=== PATIENT | female | born 1940 | race Caucasian/White ===

== ENCOUNTER 2018-11-29 13:55 | Inpatient (IN) ==
[2018-11-29] MEDS ORDERED: D50W SYRINGE IV PRN (16:15)
--- NOTE | 2018-11-29 17:32 | Diag Imaging Result Doc PS360 ---
EXAM: FOOT 2 VIEWS LEFT 11/29/2018 HISTORY: wound pain TECHNIQUE: Left foot two views COMMENT: There is erosion of the distal fifth metatarsal as there was on 11/30/2017. No evidence of acute fracture or dislocation is present. IMPRESSION: Stable foot. Electronically signed by Gil Mayer 11/29/2018 5:29 PM
--- NOTE | 2018-11-29 17:33 | Diag Imaging Result Doc PS360 ---
EXAM: CHEST-2 VIEWS 11/29/2018 HISTORY: congestion TECHNIQUE: PA and lateral chest COMMENT: The appearance of the chest has not changed significantly since 01/31/2018. IMPRESSION: Stable chest. Electronically signed by Gil Mayer 11/29/2018 5:30 PM
--- NOTE | 2018-11-29 18:07 | HISTORY AND PHYSICAL ---
HISTORY OF PRESENT ILLNESS: Ms. Addison who is a 78-year-old white female was admitted because of persistence of a sore on the lateral part of the left foot and some cellulitis around. She has diabetic neuropathy and possibly has a bunion and on top of that, she has a large sore which has not been healing and has been getting infected off and on. She has had diabetes for at least 15 to 20 years and has developed neuropathy now. She does not have much feeling in both feet and she has some peripheral arterial disease. PAST SURGICAL HISTORY: Reveals history of hysterectomy, cholecystectomy, and left ovary removal. SOCIAL HISTORY: She is a nonsmoker. Does not drink. ALLERGIES: She is allergic to vitamin E and aspirin. REVIEW OF SYSTEMS: Other than discomfort in the left foot is noncontributory. PHYSICAL EXAMINATION: VITAL SIGNS: Reveal temperature 98.2 degrees Fahrenheit, pulse 81 per minute, respiratory rate 20 per minute, blood pressure was 147/90. Pulse is irregularly irregular. HEENT: Head normocephalic. Pupils PERRLA. Fundus examination normal. NECK: Supple. JVP normal. ENT examination unremarkable. There is no evidence of lymphadenopathy, thyroid enlargement, pedal edema, calf tenderness, anemia, cyanosis or clubbing. Pedal pulses feeble. There is a sore on the lateral border of the left foot where there is some cellulitis and somewhat healthy granulation tissue inside. BREASTS: Exam normal. CHEST: Normal inspection. LUNGS: Clear on auscultation. CARDIOVASCULAR: PMI in the normal position. Heart sounds normal. No murmur, gallop, or rub noted. She is in atrial fibrillation. ABDOMEN: Nondistended. There are scars from previous surgery. No guarding, rigidity, free fluid, masses, or organomegaly. Bowel sounds normal. RECTAL: Deferred. GAS LEAK INSPECTOR: Higher functions normal. Cranial nerves normal. Motor and sensory system examination unremarkable. Deep tendon reflexes normal. Plantars downgoing. SKULL AND SPINE: Examination normal for age. No cerebellar signs or signs of meningeal irritation. LOCOMOTOR EXAM AND SKIN EXAM: Unremarkable except for the sore which is sitting on a bunion and it is about the size of a dollar. There is somewhat healthy granulation tissue; most of it is healthy granulation. There is some cellulitis around. IMPRESSION: Nonhealing diabetic sore with cellulitis on the left foot. MEDICATIONS: Her medications include atenolol, Cymbalta, Estrace, Synthroid, Cozaar, and meloxicam. We have her on Humalog sliding scale. cc: Wilbur Dorman MD MTDD
--- NOTE | 2018-11-29 18:29 | EKG Report ---
Test Performed on : 11/29/2018 5:27:06 PM Test Reason : CELLULITIS Blood Pressure : / mmHG Vent. Rate : 087 BPM Atrial Rate : 110 BPM P-R Int : 000 ms QRS Dur : 084 ms QT Int : 386 ms P-R-T Axes : 000 021 038 degrees QTc Int : 464 ms Atrial fibrillation. Nonspecific ST and T wave abnormality Abnormal ECG When compared with ECG of 11-JUL-2014 09:49, Atrial fibrillation. has replaced Sinus rhythm. Nonspecific T wave abnormality, worse in Inferior leads Nonspecific T wave abnormality, worse in Lateral leads Confirmed by Shaquille RYE, MNolan Kamara ([id number]) on 11/30/2018 6:25:24 AM
[2018-11-29] MEDS: GLUCOPHAGE PO SCH (18:58)
[2018-11-29 19:07] LABS: BASO# 0.06 X1000 (0.0-0.2); EOS# 0.06 X1000 (0.0-0.7); HEMATOCRIT 37.1 % (37.0-47.0); HEMOGLOBIN 12.6 g/dL (12.0-16.0); LYMPH# 1.97 X1000 (1.2-3.4); LYMPH% 31.3 % (20.5-51.1); MCH 29.6 PG (27-31); MCV 87.1 FL (81-99); MONO# 0.39 X1000 (0.11-0.59); MONO% 6.2 % (1.7-9.3); MPV 9.8 FL (7.4-10.4); NEUT# 3.82 X1000 (1.4-6.5); NEUT% 60.5 % (42.2-75.2); PLT 200 X1000 (130-400); RBC 4.26 XMIL (4.2-5.4); RDW 14.1 % (11.5-14.5)
[2018-11-29 19:30] LABS: ALB/GLOB RATIO 1.3; ALBUMIN 4.3 g/dL (3.5-5.0); POTASSIUM 3.8 mmol/L (3.5-5.1); TOTAL BILIRUBIN 0.47 mg/dL (0.20-1.00); TOTAL PROTEIN 7.7 g/dL (6.3-8.3)
[2018-11-29] MEDS: ZOSYN 3.375 GM in NS 50 ML IV SCH (20:30)
[2018-11-29] MEDS: ULTRAM PO SCH (21:23)
[2018-11-29] MEDS: TRILAFON PO SCH (21:24)
[2018-11-29] MEDS: HUMALOG SUBQ SCH (21:25)
[2018-11-30] MEDS: ZOSYN 3.375 GM in NS 50 ML IV SCH ×4 (02:42→21:24)
[2018-11-30 03:46] LABS: URINE SOURCE CLEAN CATCH
[2018-11-30 03:51] LABS: BILIRUBIN URINE NEGATIVE (NEGATIVE); BLOOD URINE NEGATIVE (NEGATIVE); COLOR STRAW; GLUCOSE URINE NEGATIVE (NEGATIVE); KETONE URINE NEGATIVE (NEGATIVE); LEUKOCYTES URINE NEGATIVE (NEGATIVE); NITRITE URINE NEGATIVE (NEGATIVE); PROTEIN URINE NEGATIVE (NEGATIVE); SP GRAVITY URINE 1.009; TURBIDITY URINE CLEAR (CLEAR); UR EPITHELIAL CELLS <10 /HPF (<10); URINE BACTERIA NEGATIVE /HPF; URINE RBC <10 /HPF (<10); URINE WBC <10 /HPF (<10); UROBILINOGEN URINE NORMAL (NORMAL)
[2018-11-30] MEDS: TENORMIN PO SCH ×2 (04:11→09:00)
[2018-11-30] MEDS: SYNTHROID PO SCH (06:58)
[2018-11-30] MEDS: HUMALOG SUBQ SCH ×4 (06:58→21:00)
[2018-11-30] MEDS: ESTRACE PO SCH (08:58)
[2018-11-30] MEDS: MOBIC PO SCH (08:58)
[2018-11-30] MEDS: CYMBALTA PO SCH (08:59)
[2018-11-30] MEDS: COZAAR PO SCH (08:59)
[2018-11-30] MEDS: TRILAFON PO SCH ×2 (09:00→21:30)
[2018-11-30] MEDS: GLUCOPHAGE PO SCH ×2 (09:00→17:11)
[2018-11-30] MEDS: ULTRAM PO SCH ×3 (09:00→21:24)
--- NOTE | 2018-11-30 15:27 | PROGRESS NOTE ---
DATE: 11/30/2018 Ms. Addison was admitted yesterday. Her wound appears clean today and she had arterial flow studies done. The culture studies have been done. The results will come back. In the meantime, she is being treated with IV Zosyn. -1 cc: Wilbur Dorman MD
[2018-11-30] MEDS ORDERED: TYLENOL PO PRN (20:47)
--- NOTE | 2018-11-30 21:20 | VASCULAR LAB ---
DATE: 11/29/2018 PROCEDURE: Lower extremity arterial study at rest. REFERRING PHYSICIAN: Wilbur Dorman MD. INTERPRETING PHYSICIAN: Oumar Cota MD. CUSTOMER RELATIONS ASSISTANT: Damian. INDICATION: The patient has a nonhealing wound on the lateral left foot. She is diabetic and hypertensive. No smoking history. FINDINGS: The brachial pressure is 205, right high thigh pressure 218, right low thigh pressure 235, right calf pressure 250, right dorsalis pedis pressure 219, right posterior tibial 201, right AB index 1.1, right great toe pressure 143, right total brachial index 0.70. The PVRs appear normal. On the right toe, PPGs are pulsatile in each toe. On the left, the high thigh pressure is 224, left low thigh pressure 244, left calf pressure 230, left dorsalis pedis 215, left posterior tibial 214, left AB index 1.05, left great toe pressure 109, left total brachial index 0.53. Again, the PVRs are pulsatile throughout and the PPGs of the toes are pulsatile. INTERPRETATION: Essentially normal resting arterial study. This should provide adequate blood supply to heal a wound of the foot. cc: MD Wilbur Stanford MD
[2018-11-30] MEDS: MIRALAX PO SCH (21:24)
[2018-12-01] MEDS: ZOSYN 3.375 GM in NS 50 ML IV SCH ×4 (03:34→22:09)
[2018-12-01] MEDS: SYNTHROID PO SCH (06:46)
[2018-12-01] MEDS: HUMALOG SUBQ SCH ×4 (06:47→22:07)
[2018-12-01] MEDS: MIRALAX PO SCH (09:17)
[2018-12-01] MEDS: ULTRAM PO SCH ×3 (09:17→22:07)
[2018-12-01] MEDS: ESTRACE PO SCH (09:18)
[2018-12-01] MEDS: GLUCOPHAGE PO SCH ×2 (09:19→16:43)
[2018-12-01] MEDS: CYMBALTA PO SCH (09:19)
[2018-12-01] MEDS: COZAAR PO SCH (09:19)
[2018-12-01] MEDS: TRILAFON PO SCH ×2 (09:20→22:09)
[2018-12-01] MEDS: TENORMIN PO SCH (09:21)
[2018-12-01] MEDS: MOBIC PO SCH (09:21)
--- NOTE | 2018-12-01 09:43 | PROGRESS NOTE ---
DATE: 12/01/2018 SUBJECTIVE: Ms. Addison has diabetic ulcer on the left foot. Cultures are so far negative. She is getting IV antibiotics. She is being seen by Dr. Biggs today for follow-up. She had extremity arterial flow studies performed, which are essentially normal. -0 cc: Wilbur Dorman MD
[2018-12-02] MEDS: ZOSYN 3.375 GM in NS 50 ML IV SCH ×2 (04:13→08:35)
[2018-12-02] MEDS: SYNTHROID PO SCH (06:01)
[2018-12-02] MEDS: HUMALOG SUBQ SCH ×2 (06:44→12:42)
--- NOTE | 2018-12-02 07:54 | ORTHOPAEDICS CONSULTATION ---
DATE: 12/02/2018 HISTORY OF PRESENT ILLNESS: Ms. Addison is a 78-year-old female who has been admitted to the hospital for this nonhealing ulcer on her left foot. She says it has been there for approximately 4 or 5 years. She said it looks the best it has looked now. PAST MEDICAL HISTORY: History of peripheral artery disease, diabetes, diabetic neuropathy. PAST SURGICAL HISTORY: Hysterectomy, cholecystectomy. SOCIAL HISTORY: She denies any alcohol or tobacco use. ALLERGIES: Vitamin E and aspirin. MEDICATIONS: Per the medical record. REVIEW OF SYSTEMS: Positive for ulcer on this left foot chronically. All other systems are essentially negative. PHYSICAL EXAMINATION: General: Elderly-appearing female, lying in bed in no acute distress. Head and Neck: Normocephalic, atraumatic. Respirations: Nonlabored breathing. Cardiovascular: Regular rate. Abdomen: Nondistended. Extremities: On left lower extremity exam, she has an ulcer over the 5th metatarsal base. It does appear to be superficial and there is some good granulation tissue there. I do not see any erythema around the wound. There is no drainage. Her foot is a cavus position. RADIOGRAPHS: Several views of the left foot from the hospital show: I do not see any lytic area in the base of the 5th metatarsal. There is some degeneration of the metatarsal head distally. ASSESSMENT: 1. Left diabetic foot ulcer. 2. Left cavus foot. PLAN: I discussed with Ms. Addison about the foot. There are operative and nonoperative interventions to consider. What we may need to do first is get her custom insert for her shoes to offload the 5th metatarsal but also to try to reposition her cavus foot to a little better position. I believe that is what is causing most of the problem, is her cavus is overloading that 5th metatarsal. If we can off-load it effectively, then we may not have to do any surgical intervention. I went over that with her. What I would like to do is get her to see me in the clinic outpatient. I am okay with her being discharged from an orthopedic standpoint and I will follow her in my clinic. cc: MD Wilbur Roper MD
[2018-12-02] MEDS: ESTRACE PO SCH (08:35)
[2018-12-02] MEDS: TRILAFON PO SCH (08:37)
[2018-12-02] MEDS: ULTRAM PO SCH ×2 (08:37→12:39)
[2018-12-02] MEDS: TENORMIN PO SCH (08:38)
[2018-12-02] MEDS: MOBIC PO SCH (08:38)
[2018-12-02] MEDS: COZAAR PO SCH (08:38)
[2018-12-02] MEDS: GLUCOPHAGE PO SCH (08:38)
[2018-12-02] MEDS: CYMBALTA PO SCH (08:38)
[2018-12-02] MEDS: MIRALAX PO SCH (08:38)
[2018-12-02 11:23] VITALS: BP 157/78
--- NOTE | 2018-12-02 11:48 | PROGRESS NOTE ---
DATE: 12/02/2018 SUBJECTIVE: Ms. Addison is doing better. Her lungs are clear. Heart sounds are normal. We sought recommendation from Dr. Rees and we are going to discharge her today. She is going home and she is to see Dr. Rees in about 10 days. -2 cc: Wilbur Dorman MD
--- NOTE | 2018-12-02 12:29 | Diag Imaging Result Doc PS360 ---
EXAM: 3 PHASE BONE SCAN INDICATION: rule out osteo left foot TECHNIQUE: 26.7 mCi of technetium 99 MDP was administered intravenously and three phase images of the feet were obtained in usual fashion after administration. COMPARISON: Prior bone scan dated 01/23/2013 and plain radiograph of the left foot dated 11/29/2018 FINDINGS: There is increased uptake on blood flow and blood pool images at the lateral aspect of the left mid foot corresponding to the soft tissue edema seen on plain radiograph. This indicates nonspecific hyperemia, which would be expected with cellulitis. On the delayed images, there is only very mild diffuse increased uptake associated with the left midfoot that is probably degenerative. It is actually similar to the previous study. No focal increased uptake is identified at the lateral aspect of the foot to indicate osteomyelitis on the current study. IMPRESSION: 1.Increased focal uptake at the lateral aspect of the midfoot on the left on the early phases indicating hyperemia but no focal increased delayed bony uptake is appreciated to indicate osteomyelitis. 2.Mild diffuse increased uptake associated with the midfoot on the left, which is probably degenerative. Electronically signed by Jose R Win 12/02/2018 12:27 PM
--- NOTE | 2018-12-02 13:07 | DISCHARGE SUMMARY ---
ADMISSION DATE: 11/29/2018 DISCHARGE DATE: 12/02/2018 Ms. Addison was admitted with a sore on the left foot with some cellulitis. COURSE IN THE HOSPITAL: Left foot x-ray was unremarkable, negative for osteomyelitis. Chest x- ray was unremarkable. LAB DATA: CBC was normal. Blood sugars were around 100. Urinalysis was negative. COURSE IN THE HOSPITAL: She was treated with IV antibiotics as well as wound care nurse consult was noted. Surgical consult was obtained with Dr. Biggs who in turn referred her to Dr. Rees. Dr. Rees saw her and his suggestion was left diabetic foot ulcer, left cavus foot, and he suggested that she would need other surgery or special kind of shoe and he is going to see her in the office and will take care of it later on. FINAL DIAGNOSIS: Diabetic foot with ulcer and mild cellulitis. She has antibiotics at home which she will continue. cc: Wilbur Dorman MD
--- NOTE | 2018-12-02 18:12 | CONSULTATION ---
DATE OF CONSULTATION: 12/01/2018 HISTORY: Consultation is for a nonhealing ulcer left lateral foot. The plan is surgical evaluation and orthopedic consultation. The patient is a 78-year-old, white female known to me for many years who has a chronically inverted, medially inverted left foot with most of her weight bearing on the lateral aspect of the left foot leading to an ulcerated area at the base of the 5th metatarsal. The culture is growing diphtheroids. There is no evidence of osteomyelitis on the plain x-rays. She will undergo bone scan on 12/02. 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 PLAN: Orthopedic consultation, significant large intervention will would possibly lead to amputation so ideally a nonoperative approach as this ulcer has been there for several years will be obtained. Dr. Rees will be consulted to see the patient and hopefully, she will be able to be discharged over the next day or so. cc: MD Wilbur Arana MD
[2018-12-02] MEDS ORDERED: TRILAFON PO SCH (21:00)
[2018-12-03] MEDS ORDERED: TRILAFON PO SCH (09:00)
== END 2018-12-02 15:14 | disposition home health service (06) | DRG 638 ==
LOC: DIRADM 13:55 → 4N 14:05
PROVIDERS: ADMIT Internal Medicine; ATTEND Internal Medicine